=== PATIENT | female | born 1990 ===

== ENCOUNTER 2021-07-26 07:36 | Inpatient (IN) | payer OTHER ==
[2021-07-26] MEDS ORDERED: Carboprost Tromethamine 250 MCG/1 ML Amp IM PRN (08:07)
[2021-07-26] MEDS ORDERED: Butorphanol 1 MG/ML SDV IVPUSH PRN (08:07)
[2021-07-26] MEDS ORDERED: Methylergonovine 0.2 MG/1 ML Amp IM PRN ×2 (08:07→13:25)
[2021-07-26] MEDS ORDERED: Water For Irrigation,Sterile 1,000 ML Container IRR PRN (08:07)
[2021-07-26] MEDS ORDERED: Misoprostol 200 MCG Tab PO PRN (08:07)
[2021-07-26] MEDS ORDERED: Sodium Chloride 0.9% 2.5 ML Syringe FLUSH PRN (08:07)
[2021-07-26] MEDS ORDERED: Tranexamic Acid 1,000 MG in Sodium Chloride 0.9% 100 ML IV PRN ×2 (08:07→13:25)
[2021-07-26] MEDS ORDERED: Sodium Chloride 0.9% 10 ML Syringe FLUSH PRN (08:07)
[2021-07-26] MEDS ORDERED: Lidocaine 1% 50 ML MDV INJECT PRN (08:07)
[2021-07-26] MEDS ORDERED: Ondansetron 4 MG/2 ML SDV IVPUSH PRN (08:07)
[2021-07-26] MEDS: Lactated Ringers 1,000 ML IV SCH ×3 (08:07→10:51)
[2021-07-26] MEDS ORDERED: Sodium Chloride 0.9% 20 ML SDV IV PRN (08:07)
[2021-07-26] MEDS ORDERED: Terbutaline 1 MG/ML SDV SUBCUT PRN (08:12)
[2021-07-26] MEDS ORDERED: Oxytocin/0.9 % Sodium Chloride 30 UNIT/500 ML BAG IV SCH ×2 (08:15)
[2021-07-26] MEDS ORDERED: Ampicillin 2 GM in Sodium Chloride 0.9% 100 ML IV ONE (08:30)
[2021-07-26] MEDS ORDERED: Ropivacaine 100 ML ONE (09:16)
[2021-07-26] MEDS ORDERED: ePHEDrine 50 MG/ML SDV IVPUSH PRN ×2 (09:32)
[2021-07-26] MEDS ORDERED: Ropivacaine 200 MG in Premix Bag 1 BAG EPIDUR SCH (09:45)
[2021-07-26] MEDS ORDERED: Ampicillin 1 GM in Sodium Chloride 0.9% 50 ML IV SCH (12:30)
[2021-07-26] MEDS ORDERED: Docusate Sodium 100 MG Cap PO PRN (13:25)
[2021-07-26] MEDS ORDERED: Acetaminophen 500 MG Tab PO PRN ×2 (13:25)
[2021-07-26] MEDS ORDERED: Lanolin 100% Cream 7 GM Tube TOP PRN (13:25)
[2021-07-26] MEDS ORDERED: Witch Hazel Medicated Pads 40/Jar TOP PRN (13:25)
[2021-07-26] MEDS ORDERED: Bisacodyl 10 MG Supp RECTAL PRN (13:25)
[2021-07-26] MEDS ORDERED: Benzocaine/Menthol 20%-0.5% Spray 78 GM Cannister TOP PRN (13:25)
[2021-07-26] MEDS ORDERED: Ibuprofen 800 MG Tab PO PRN (13:25)
[2021-07-26] MEDS ORDERED: Ibuprofen 400 MG Tab PO PRN (13:25)
== END 2021-07-28 10:18 | disposition home or self-care (01) | DRG 807 ==
LOC: MW.OBCHECK 07:36 → MW.OB 07:37 → MW.OBCHECK 08:07 → MW.OB 13:04 → OBSVTOIN 13:25 → MW.OB 16:29
PROVIDERS: ADMIT Obstetrics & Gynecology; ATTEND Obstetrics & Gynecology
PROC: 10E0XZZ Delivery of Products of Conception, External Approach (ICD-10-PCS; principal; 2021-07-26)
PROC: 3E0R3BZ Introduction of Anesthetic Agent into Spinal Canal, Percutaneous Approach (ICD-10-PCS; 2021-07-26)
DX: O99.824 Streptococcus B carrier state complicating childbirth (principal); Z37.0 Single live birth; Z3A.40 40 weeks gestation of pregnancy; O48.0 Post-term pregnancy; Z20.822 Contact with and (suspected) exposure to COVID-19
CPT/HCPCS: 01967; 36415; 51702; 59025; 59409; 82803; 85014; 85018; 85027; 86592; 86850; 86900; 86901; A9270-GY; J0290; J2590; J2795; J7120; U0002